=== PATIENT | female | born 1995 | race Caucasian/White ===

== ENCOUNTER 2021-08-12 23:22 | Emergency (ER) | payer OTHER ==
[2021-08-12 23:47] VITALS: BMI 29.9
[2021-08-13] MEDS ORDERED: DEXAMETHASONE 4 MG TABLET (FP) PO ONE (01:45)
[2021-08-13] MEDS ORDERED: MAG HYDROX/AL HYDROX/SIMETH 30 ML UNIT-DOSE CUP PO ONE (01:46)
[2021-08-13 02:04] VITALS: BP 116/70; PULSE 90; TEMP 98.9
[2021-08-13] MEDS ORDERED: MAG HYDROX/AL HYDROX/SIMETH 30 ML UNIT-DOSE CUP ONE (02:55)
[2021-08-13] MEDS ORDERED: DEXAMETHASONE 4 MG TABLET (FP) ONE (02:55)
[2021-08-13 03:45] LABS: BASO % 0.4 % (0-2.0); EOS % 1.5 % (0-4.5); HEMATOCRIT 36.6 % (32.4-45.2); LYMPH % 22.2 % (8-40); MCH 28.2 pg (25.7-33.7); MCHC 32.8 g/dl (32.0-36.0); MEAN CELL VOLUME 85.8 fl (80-96); MEAN PLT VOLUME 7.2 fl (7.5-11.1); MONO % 7.8 % (3.8-10.2); NEUT % 68.1 % (42.8-82.8); PLATELET COUNT 462 10^3/uL (134-434); RBC 4.26 M/mm3 (3.60-5.2); RDW 13.2 % (11.6-15.6); WHITE BLOOD COUNT 12.6 K/mm3 (4.0-10.0)
[2021-08-13 04:08] LABS: BLOOD UREA NITROGEN 5.5 mg/dL (7-18); CALCIUM 9.3 mg/dL (8.5-10.1)
[2021-08-13 04:11] LABS: CREATININE 0.6 mg/dL (0.55-1.3)
== END 2021-08-13 04:59 | disposition home or self-care (01) ==
LOC: JER 23:22
DX: R05.1 Acute cough (principal); R06.02 Shortness of breath
CPT/HCPCS: 0241U-QW; 36415; 71046-TC-FY; 80048; 84703; 85025; 87651; 99284-25